=== PATIENT | female | born 1965 | race Caucasian/White ===

== ENCOUNTER 2020-08-03 13:39 | Emergency (ER) | payer SELFPAY ==
[2020-08-03] MEDS ORDERED: Boostrix 0.5 ML (Tdap) VIAL ONE (14:05)
[2020-08-03] MEDS ORDERED: Amoxicillin/Potassium Clav 875 MG TAB ONE (14:05)
== END 2020-08-03 14:50 | disposition home or self-care (01) ==
LOC: MADERS 13:39
DX: L03.011 Cellulitis of right finger (principal)
CPT/HCPCS: 90471; 90715

== ENCOUNTER 2022-09-04 15:37 | Emergency (ER) | payer BC ==
[2022-09-04] MEDS ORDERED: predniSONE 10 MG TAB ONE (16:30)
== END 2022-09-04 16:47 | disposition home or self-care (01) ==
LOC: MADERS 15:37
DX: M77.8 Other enthesopathies, not elsewhere classified (principal)
CPT/HCPCS: 99283; J7512

== ENCOUNTER 2022-12-07 14:05 | Emergency (ER) | payer BC, OTHER ==
[2022-12-07] MEDS ORDERED: Ibuprofen 800 MG TAB ONE (14:24)
== END 2022-12-07 14:27 | disposition home or self-care (01) ==
LOC: MADERS 14:05
DX: M62.838 Other muscle spasm (principal)
CPT/HCPCS: 99283

== ENCOUNTER 2023-03-22 11:56 | Emergency (ER) | payer OTHER | END 2023-03-22 13:00 | disposition home or self-care (01) | LOC: MADERS 11:56 | DX: M12.811 Other specific arthropathies, not elsewhere classified, right shoulder (principal); I10 Essential (primary) hypertension ==

== ENCOUNTER 2023-09-24 17:08 | Emergency (ER) | payer OTHER ==
[~2023-09-24 17:08] MED LIST: Iopamidol 370 76% 100 ML VIAL ONE; Sodium Chloride 0.9% 100 ML BAG ONE
[2023-09-24] MEDS ORDERED: Nitroglycerin 0.4 MG TAB 1 EACH ONE (17:33)
[2023-09-24] MEDS ORDERED: Aspirin Chewable 81 MG TAB ONE (17:34)
[2023-09-24 17:38] LABS: #Lymphocytes 1.1 thou/uL (1.20-3.40); #Monocytes 0.4 thou/uL (0.11-0.59); #Neutrophils 6.4 thou/uL (1.40-6.50); %Basophils 0.3 % (0.0-1.0); %Eosinophils 0.5 % (0.0-10.0); %Lymphocytes 13.5 % (21.0-51.0); %Neutrophils 80.7 % (42.0-75.0); Hematocrit 46.8 % (36.0-47.0); Hemoglobin 14.2 g/dL (12.0-16.0); Mean Corpuscular HGB CONC 30.3 g/dL (32.0-36.0); Mean Corpuscular Hemoglobin 27.4 pg (27.0-31.0); Mean Corpuscular Volume 90.6 fl (78.0-98.0); Mean Platelet Volume 8.5 fL (7.4-10.4); Platelet Count 180 10x3/uL (130-400); RBC Distribution Width 12.2 % (11.5-14.5); Red Blood Cell (RBC) Count 5.17 mill/uL (4.20-5.40)
[2023-09-24 17:56] LABS: ALT (SGPT) 29 U/L (8-55); AST (SGOT) 22 U/L (5-34); Albumin 4.6 g/dL (3.5-5.0); Alkaline Phosphatase 90 U/L (40-110); Anion Gap 15 mmol/L (10-20); BUN (Urea Nitrogen) 19 mg/dL (9.8-20.1); Bilirubin, Total 1.6 mg/dL (0.2-1.2); Calc. Creatinine Clearance 0 mL/min (70-130); Calcium 10.1 mg/dL (7.8-10.44); Carbon Dioxide 25 mmol/L (22-29); Chloride 104 mmol/L (98-107); Estimated GFR 81; Globulin 2.9 g/dL (2.4-3.5); Glucose 98 mg/dL (70-105); Lipase 46 U/L (8-78); Potassium 3.9 mmol/L (3.5-5.1); Protein, Total 7.5 g/dL (6.0-8.3); Sodium 140 mmol/L (136-145); Troponin I Less than 0.010 ng/mL (< 0.028)
[2023-09-24] MEDS ORDERED: Nitroglycerin 2% Ointment 1 INCH/1 GM Packet ONE (18:13)
[2023-09-24 18:21] LABS: Influenza A by NAA Not Detected (NotDetected); Influenza B by NAA Not Detected (NotDetected); SARS-CoV-2 NAA Rapid Test Not Detected (NotDetected)
[2023-09-24] MEDS ORDERED: Lidocaine 4% Patch ONE (19:22)
[2023-09-24] MEDS ORDERED: Acetaminophen 500 MG TAB ONE ×2 (19:22→19:23)
[2023-09-24 20:49] LABS: Troponin I Less than 0.010 ng/mL (< 0.028)
== END 2023-09-24 21:22 | disposition home or self-care (01) ==
LOC: MADERS 17:08
DX: R09.1 Pleurisy (principal); I10 Essential (primary) hypertension
CPT/HCPCS: 71046; 71275; 80053; 83690; 84484; 85025; 85379; 93005; 94760; Q9967

== ENCOUNTER 2025-01-05 10:11 | Emergency (ER) | payer OTHER ==
[2025-01-05] MEDS ORDERED: Ibuprofen 800 MG TAB ONE (10:59)
== END 2025-01-05 11:00 | disposition home or self-care (01) ==
LOC: MADERS 10:11
DX: K08.89 Other specified disorders of teeth and supporting structures (principal); E78.5 Hyperlipidemia, unspecified; I10 Essential (primary) hypertension; Z79.899 Other long term (current) drug therapy
CPT/HCPCS: 99282